=== PATIENT | male | born 1935 | race Caucasian/White ===

== ENCOUNTER 2017-10-27 18:16 | Inpatient (IN) | payer MEDICARE, OTHER ==
[~2017-10-27] VITALS: Ht 167.6 cm; Wt 70.8 kg
[2017-10-27] MEDS ORDERED: METHYLPREDNISOLONE SOD SUCC 125MG/2ML VIAL ONE (18:28)
[2017-10-27 18:37] LABS: BASOPHILS % (AUTO) 0.6 % (0.0-5.0); EOSINOPHILS % (AUTO) 2.1 % (0.0-8.0); HEMATOCRIT 29.5 % (42-54); MEAN CORPUSCULAR HEMOGLOBIN 32.9 pg (27.0-33.0); MEAN CORPUSCULAR HGB CONC 35.1 g/dL (32.0-36.0); MEAN CORPUSCULAR VOLUME 93.9 fL (79-99); MONOCYTES % (AUTO) 17.5 % (3.0-13.0); NEUTROPHILS % (AUTO) 41.8 % (40.0-77.0); PLATELET COUNT (AUTO) 224 K/uL (130-400); RED BLOOD CELL COUNT(AUTO) 3.14 MIL/uL (4.50-6.20); RED CELL DISTRIBUTION WIDTH 15.3 % (11.0-15.5); WHITE BLOOD COUNT (AUTO) 4.3 K/uL (4.8-10.8)
[2017-10-27] MEDS ORDERED: IPRATROPIUM/ALBUTEROL SULFATE 3 ML SOLUTION IH ONE (18:40)
[2017-10-27 18:48] LABS: CREATININE 1.5 mg/dL (0.5-1.5); POTASSIUM 4.2 mmol/L (3.5-5.1)
[2017-10-27 18:56] LABS: ALBUMIN 3.5 g/dL (3.5-5.0); BILIRUBIN,TOTAL 0.8 mg/dL (0.2-1.0); TOTAL PROTEIN, SERUM 8.5 g/dL (6.0-8.3)
[2017-10-27 19:25] LABS: B-TYPE NATRIURETIC PEPTIDE 547 pg/mL (0-100)
[2017-10-27] MEDS ORDERED: FUROSEMIDE 10 MG/ML 4ML VIAL ONE (20:17)
[2017-10-27] MEDS: FUROSEMIDE 10 MG/ML 4ML VIAL IVP SCH (20:30)
[2017-10-27 21:55] VITALS: BP 134/71
[2017-10-27] MEDS ORDERED: CARV3.12 PO (22:18)
[2017-10-27] MEDS ORDERED: ASPI-555 PO (22:18)
[2017-10-27] MEDS ORDERED: FOLI0.8T PO (22:18)
[2017-10-27] MEDS ORDERED: BUDE10.2 IH (22:18)
[2017-10-27] MEDS ORDERED: CYAN250010 PO (22:18)
[2017-10-27] MEDS ORDERED: FURO20TA4 PO (22:19)
[2017-10-27] MEDS ORDERED: TIOT18CA3 IH (22:19)
[2017-10-27] MEDS ORDERED: IPRA3AMP4 IH (22:19)
[2017-10-27] MEDS ORDERED: SIMV20TA6 PO (22:19)
[2017-10-27] MEDS ORDERED: NITR0.4T50 SL (22:19)
[2017-10-27] MEDS ORDERED: SPIR25TA4 PO (22:19)
[2017-10-27] MEDS ORDERED: TAMS0.4C32 PO (22:19)
[2017-10-27] MEDS ORDERED: IPRA4AER IH (22:19)
[2017-10-27] MEDS ORDERED: FISH1CAP50 PO (22:19)
[2017-10-27] MEDS ORDERED: [UNRECOGNIZED DRUG - CODE] MC (22:19)
[2017-10-27] MEDS ORDERED: MULT-1203 PO (22:19)
[2017-10-27] MEDS ORDERED: LOSA25TA21 PO (22:19)
[2017-10-27 23:55] VITALS: BP 118/65
[2017-10-28] MEDS: IPRATROPIUM/ALBUTEROL SULFATE 3 ML SOLUTION IH SCH ×4 (02:09→17:33)
[2017-10-28 04:00] VITALS: BP 127/71
[2017-10-28 07:00] VITALS: BP 128/76
[2017-10-28] MEDS: FUROSEMIDE 10 MG/ML 4ML VIAL IVP SCH ×2 (07:36→20:43)
[2017-10-28] MEDS ORDERED: DOCU100C33 PO (07:46)
[2017-10-28] MEDS: TAMSULOSIN HCL 0.4 MG CAP.ER.24H PO SCH (09:22)
[2017-10-28 11:00] VITALS: BP 123/74
[2017-10-28] MEDS ORDERED: NITROGLYCERIN 0.4 MG SL TAB SL PRN (11:45)
[2017-10-28] MEDS ORDERED: ONDANSETRON HCL 4 MG/2 ML VIAL IVP PRN (11:45)
[2017-10-28] MEDS ORDERED: SODIUM CHLORIDE 0.9% 500ML 500 ML IV ONE (14:50)
[2017-10-28] MEDS: LEVOFLOXACIN 500 MG/D5W 100 ML 100 ML IV SCH (15:26)
[2017-10-28 16:00] VITALS: BP 122/64
[2017-10-28 20:00] VITALS: BP 112/59
[2017-10-28] MEDS: DOCUSATE SODIUM 100 MG CAP PO SCH (20:42)
[2017-10-28] MEDS: CARVEDILOL 3.125 MG TABLET PO SCH (20:43)
[2017-10-28] MEDS: ATORVASTATIN CALCIUM 10 MG TABLET PO SCH (20:43)
[2017-10-29] VITALS (7 sets, daily range): BP systolic 93–114; BP diastolic 54–69
[2017-10-29] MEDS: IPRATROPIUM/ALBUTEROL SULFATE 3 ML SOLUTION IH SCH ×4 (00:11→18:23)
[2017-10-29] MEDS: CARVEDILOL 3.125 MG TABLET PO SCH ×3 (09:00→20:02)
[2017-10-29] MEDS ORDERED: LOSARTAN 50 MG TABLET PO SCH (09:00)
[2017-10-29] MEDS: ASPIRIN 81 MG EC TAB PO SCH (09:40)
[2017-10-29] MEDS: ENOXAPARIN SODIUM 30 MG/0.3 ML SQ SCH (09:40)
[2017-10-29] MEDS: SPIRONOLACTONE 25 MG TAB PO SCH (09:41)
[2017-10-29] MEDS: DOCUSATE SODIUM 100 MG CAP PO SCH ×2 (09:41→20:02)
[2017-10-29] MEDS: FUROSEMIDE 10 MG/ML 4ML VIAL IVP SCH (09:41)
[2017-10-29] MEDS: TAMSULOSIN HCL 0.4 MG CAP.ER.24H PO SCH (09:42)
[2017-10-29 10:55] LABS: BASOPHILS % (AUTO) 0.4 % (0.0-5.0); EOSINOPHILS % (AUTO) 1.3 % (0.0-8.0); HEMATOCRIT 30.2 % (42-54); LYMPHOCYTES % (AUTO) 20.8 % (21.0-51.0); MEAN CORPUSCULAR HEMOGLOBIN 32.7 pg (27.0-33.0); MEAN CORPUSCULAR HGB CONC 34.6 g/dL (32.0-36.0); MEAN CORPUSCULAR VOLUME 94.5 fL (79-99); MONOCYTES % (AUTO) 13.6 % (3.0-13.0); NEUTROPHILS % (AUTO) 63.9 % (40.0-77.0); PLATELET COUNT (AUTO) 250 K/uL (130-400); RED BLOOD CELL COUNT(AUTO) 3.19 MIL/uL (4.50-6.20); RED CELL DISTRIBUTION WIDTH 15.5 % (11.0-15.5); WHITE BLOOD COUNT (AUTO) 5.4 K/uL (4.8-10.8)
[2017-10-29 11:04] LABS: CREATININE 1.4 mg/dL (0.5-1.5); POTASSIUM 4.5 mmol/L (3.5-5.1)
[2017-10-29] MEDS: LEVOFLOXACIN 500 MG/D5W 100 ML 100 ML IV SCH (11:23)
[2017-10-29] MEDS ORDERED: FUROSEMIDE 40 MG TABLET PO SCH (13:00)
[2017-10-29] MEDS ORDERED: SODIUM CHLORIDE 3% FOR INHALATION 4 ML/AMP VIAL.NEB IH ONE (18:33)
[2017-10-29] MEDS: ATORVASTATIN CALCIUM 10 MG TABLET PO SCH (20:02)
[2017-10-29] MEDS ORDERED: PANTOPRAZOLE SODIUM 40 MG TABLET.DR PO ONE (22:13)
[2017-10-29] MEDS ORDERED: MAG HYDROX/AL HYDROX/SIMETH ES 30 ML SUSP UDCUP PO PRN (22:15)
[2017-10-29] MEDS: PANTOPRAZOLE SODIUM 40 MG TABLET.DR PO SCH (22:15)
[2017-10-29] MEDS ORDERED: MAG HYDROX/AL HYDROX/SIMETH ES 30 ML SUSP UDCUP ONE (22:19)
[2017-10-30] MEDS: IPRATROPIUM/ALBUTEROL SULFATE 3 ML SOLUTION IH SCH ×4 (00:12→20:20)
[2017-10-30 04:00] VITALS: BP 94/57
[2017-10-30 05:17] LABS: BASOPHILS % (AUTO) 0.2 % (0.0-5.0); EOSINOPHILS % (AUTO) 2.7 % (0.0-8.0); LYMPHOCYTES % (AUTO) 28.1 % (21.0-51.0); MEAN CORPUSCULAR HEMOGLOBIN 33.3 pg (27.0-33.0); MEAN CORPUSCULAR HGB CONC 35.5 g/dL (32.0-36.0); MEAN CORPUSCULAR VOLUME 93.9 fL (79-99); MONOCYTES % (AUTO) 18.3 % (3.0-13.0); NEUTROPHILS % (AUTO) 50.7 % (40.0-77.0); PLATELET COUNT (AUTO) 229 K/uL (130-400); RED BLOOD CELL COUNT(AUTO) 2.87 MIL/uL (4.50-6.20); RED CELL DISTRIBUTION WIDTH 15.6 % (11.0-15.5); WHITE BLOOD COUNT (AUTO) 4.5 K/uL (4.8-10.8)
[2017-10-30 05:55] LABS: B-TYPE NATRIURETIC PEPTIDE 166 pg/mL (0-100)
[2017-10-30 06:08] LABS: POTASSIUM 3.9 mmol/L (3.5-5.1)
[2017-10-30 07:45] VITALS: BP 111/70
[2017-10-30] MEDS: DOCUSATE SODIUM 100 MG CAP PO SCH ×2 (08:51→21:04)
[2017-10-30] MEDS: SPIRONOLACTONE 25 MG TAB PO SCH (08:51)
[2017-10-30] MEDS: PANTOPRAZOLE SODIUM 40 MG TABLET.DR PO SCH (08:51)
[2017-10-30] MEDS: TAMSULOSIN HCL 0.4 MG CAP.ER.24H PO SCH (08:51)
[2017-10-30] MEDS: ASPIRIN 81 MG EC TAB PO SCH (08:52)
[2017-10-30] MEDS: ACETAMINOPHEN EXTRA STRENGTH 500 MG TABLET PO PRN ×3 (08:52→23:32)
[2017-10-30] MEDS: ENOXAPARIN SODIUM 30 MG/0.3 ML SQ SCH (08:53)
[2017-10-30] MEDS: CARVEDILOL 3.125 MG TABLET PO SCH (08:54)
[2017-10-30] MEDS: LEVOFLOXACIN 500 MG/D5W 100 ML 100 ML IV SCH (10:54)
[2017-10-30 12:00] VITALS: BP 87/50
[2017-10-30 15:50] VITALS: BP 85/51
[2017-10-30] MEDS ORDERED: LEVO500T2 PO (18:22)
[2017-10-30 19:00] VITALS: BP 97/56
[2017-10-30] MEDS: ATORVASTATIN CALCIUM 10 MG TABLET PO SCH (21:04)
[2017-10-30 23:00] VITALS: BP 116/63
[2017-10-31] MEDS: IPRATROPIUM/ALBUTEROL SULFATE 3 ML SOLUTION IH SCH ×2 (01:25→07:21)
[2017-10-31 03:00] VITALS: BP 124/61
[2017-10-31] MEDS: ASPIRIN 81 MG EC TAB PO SCH (07:57)
[2017-10-31] MEDS: TAMSULOSIN HCL 0.4 MG CAP.ER.24H PO SCH (07:58)
[2017-10-31] MEDS: PANTOPRAZOLE SODIUM 40 MG TABLET.DR PO SCH (07:58)
[2017-10-31] MEDS: ENOXAPARIN SODIUM 30 MG/0.3 ML SQ SCH (07:58)
[2017-10-31] MEDS: DOCUSATE SODIUM 100 MG CAP PO SCH (07:58)
[2017-10-31 08:18] VITALS: BP 118/63
[2017-10-31] MEDS: ACETAMINOPHEN EXTRA STRENGTH 500 MG TABLET PO PRN (09:09)
== END 2017-10-31 11:30 | disposition home or self-care (01) | DRG 190 ==
LOC: EDH 18:16 → EDHIP 20:04 → 4AH 20:59 → 4BH 10-28 18:07
PROVIDERS: ADMIT Family Medicine; ATTEND Family Medicine
DX: J44.1 Chronic obstructive pulmonary disease with (acute) exacerbation (principal); I50.23 Acute on chronic systolic (congestive) heart failure; D70.9 Neutropenia, unspecified; D63.8 Anemia in other chronic diseases classified elsewhere; Z95.1 Presence of aortocoronary bypass graft; I11.0 Hypertensive heart disease with heart failure; I25.10 Atherosclerotic heart disease of native coronary artery without angina pectoris; Z87.891 Personal history of nicotine dependence
CPT/HCPCS: 36415; 71045; 71250; 80048; 80053; 83880; 84484; 85025; 87071; 87205; 87633; 93005; 94640; 94664; 94760; 99291; J1650; J1940; J1956; J2930; J7040

== ENCOUNTER 2017-11-17 11:45 | Inpatient (IN) | payer OTHER ==
[~2017-11-17] VITALS: Ht 165.1 cm; Wt 70.3 kg
[~2017-11-17 11:45] MED LIST: ASPI-555 PO; BUDE10.2 IH; CARV3.12 PO; CYAN250010 PO; DOCU100C33 PO; FISH1CAP50 PO; FOLI0.8T PO; FURO20TA4 PO; IPRA3AMP4 IH; IPRA4AER IH; LEVO500T2 PO; MULT-1203 PO; SIMV20TA6 PO; SPIR25TA4 PO; TAMS0.4C32 PO; TIOT18CA3 IH; [UNRECOGNIZED DRUG - CODE] MC
[2017-11-17] MEDS ORDERED: IPRATROPIUM/ALBUTEROL SULFATE 3 ML SOLUTION IH ONE (12:30)
[2017-11-17 13:04] LABS: BASOPHILS % (AUTO) 0.2 % (0.0-5.0); EOSINOPHILS % (AUTO) 4.3 % (0.0-8.0); HEMATOCRIT 27.2 % (42-54); MEAN CORPUSCULAR HEMOGLOBIN 33.7 pg (27.0-33.0); MEAN CORPUSCULAR HGB CONC 35.3 g/dL (32.0-36.0); MEAN CORPUSCULAR VOLUME 95.4 fL (79-99); NEUTROPHILS % (AUTO) 38.5 % (40.0-77.0); NUCLEATED RED BLOOD CELLS 0.1 % (0.0-0.19); PLATELET COUNT (AUTO) 236 K/uL (130-400); RED BLOOD CELL COUNT(AUTO) 2.85 MIL/uL (4.50-6.20); WHITE BLOOD COUNT (AUTO) 4.5 K/uL (4.8-10.8)
[2017-11-17 13:14] LABS: CREATININE 1.1 mg/dL (0.5-1.5); POTASSIUM 4.4 mmol/L (3.5-5.1)
[2017-11-17 13:17] LABS: PARTIAL THROMBOPLASTIN TIME 26.3 SEC (26.3-35.5); PROTHROMBIN TIME 10.5 SEC (9.6-11.6)
[2017-11-17 13:19] LABS: ALBUMIN 3.2 g/dL (3.5-5.0); BILIRUBIN,TOTAL 0.7 mg/dL (0.2-1.0); TOTAL PROTEIN, SERUM 8.2 g/dL (6.0-8.3)
[2017-11-17 14:07] LABS: B-TYPE NATRIURETIC PEPTIDE 328 pg/mL (0-100)
[2017-11-17] MEDS ORDERED: IOPAMIDOL-370 100 ML VIAL IV ONE (14:09)
[2017-11-17] MEDS ORDERED: METHYLPREDNISOLONE SOD SUCC 40MG/ML 1ML ONE (16:09)
[2017-11-17] MEDS ORDERED: DOXYCYCLINE 100MG+NS 250ML 250 ML IV ONE (16:09)
[2017-11-17] MEDS ORDERED: POTASSIUM CHLORIDE 20 MEQ ERTAB PO PRN (16:15)
[2017-11-17] MEDS ORDERED: SUB PER P&T FOR ASTHMA OR COPD RECOMMENDATION IH SCH (16:15)
[2017-11-17] MEDS ORDERED: MORPHINE SULFATE 2 MG/ML 1ML SYG IV PRN (16:15)
[2017-11-17] MEDS ORDERED: NITROGLYCERIN 0.4 MG SL TAB SL PRN (16:15)
[2017-11-17] MEDS ORDERED: MAG HYDROX/AL HYDROX/SIMETH ES 30 ML SUSP UDCUP PO PRN (16:15)
[2017-11-17] MEDS ORDERED: MORPHINE SULFATE 4 MG/1ML SYG IV PRN (16:15)
[2017-11-17] MEDS ORDERED: GUAIFENESIN-DM 200/20 MG 10 ML PO PRN (16:15)
[2017-11-17] MEDS ORDERED: ACETAMINOPHEN-CODEINE 300/30MG TAB PO PRN ×2 (16:15)
[2017-11-17] MEDS ORDERED: HYDRALAZINE HCL 20 MG/ML VIAL IV PRN (16:15)
[2017-11-17] MEDS ORDERED: ACETAMINOPHEN 325 MG TAB PO PRN ×2 (16:15)
[2017-11-17] MEDS ORDERED: POTASSIUM CHLORIDE 20MEQ/100ML 100 ML IV PRN (16:15)
[2017-11-17] MEDS ORDERED: LACTULOSE 20 GM/30 ML UDCUP PO PRN (16:15)
[2017-11-17] MEDS: DOXYCYCLINE 100MG+NS 250ML 250 ML IV SCH (16:15)
[2017-11-17] MEDS ORDERED: ONDANSETRON HCL 4 MG/2 ML VIAL IV PRN (16:15)
[2017-11-17] MEDS ORDERED: LIDOCAINE HCL-MPF 1% 2ML VIAL IVP PRN (16:15)
[2017-11-17] MEDS: METHYLPREDNISOLONE SOD SUCC 125MG/2ML VIAL IV SCH (16:15)
[2017-11-17] MEDS ORDERED: POTASSIUM CHLORIDE 10% ELIXIR 20 MEQ/15 ML UDCUP PO PRN (16:15)
[2017-11-17 17:00] VITALS: BP 137/64
[2017-11-17] MEDS ORDERED: CARVEDILOL 3.125 MG TABLET PO ONE (19:04)
[2017-11-17] MEDS ORDERED: ATORVASTATIN CALCIUM 10 MG TABLET ONE (19:04)
[2017-11-17] MEDS ORDERED: FAMOTIDINE/PF 20 MG/2 ML VIAL IV ONE (19:05)
[2017-11-17] MEDS: BUDESONIDE 0.5 MG/2 ML INH IH SCH (19:10)
[2017-11-17] MEDS: IPRATROPIUM/ALBUTEROL SULFATE 3 ML SOLUTION IH SCH (19:10)
[2017-11-17] MEDS: FUROSEMIDE 10 MG/ML 4ML VIAL IVP SCH (19:12)
[2017-11-17] MEDS: ATORVASTATIN CALCIUM 10 MG TABLET PO SCH (19:12)
[2017-11-17] MEDS: FAMOTIDINE/PF 20 MG/2 ML VIAL IV SCH (19:14)
[2017-11-17] MEDS: CARVEDILOL 3.125 MG TABLET PO SCH (19:16)
[2017-11-17 20:25] VITALS: BP 148/82
[2017-11-18] VITALS (7 sets, daily range): BP systolic 109–130; BP diastolic 59–67
[2017-11-18] MEDS: IPRATROPIUM/ALBUTEROL SULFATE 3 ML SOLUTION IH SCH ×5 (00:02→23:11)
[2017-11-18] MEDS: METHYLPREDNISOLONE SOD SUCC 125MG/2ML VIAL IV SCH ×3 (00:08→16:01)
[2017-11-18] MEDS: DOXYCYCLINE 100MG+NS 250ML 250 ML IV SCH ×2 (03:35→16:24)
[2017-11-18] MEDS: BUDESONIDE 0.5 MG/2 ML INH IH SCH ×2 (05:20→18:04)
[2017-11-18 05:35] LABS: CARBON DIOXIDE 28 mmol/L (21-32); CHLORIDE 101 mmol/L (101-111); CREATINE KINASE MB 1.3 ng/mL (0.5-3.6); CREATINE KINASE, TOTAL 57 U/L (21-232); CREATININE 1.1 mg/dL (0.5-1.5); GLOMERULAR FILTR. RATE CALC 68 mL/min (>60); GLUCOSE,RANDOM 159 mg/dL (70-105); MYOGLOBIN 114 ng/mL (10-92); POTASSIUM 4.1 mmol/L (3.5-5.1); SODIUM SERUM 138 mmol/L (136-145); TROPONIN I < 0.04 ng/mL (0.00-0.06); UREA NITROGEN, BLOOD 21 mg/dL (7-18)
[2017-11-18] MEDS: FOLIC ACID 0.8 MG PO SCH (09:00)
[2017-11-18] MEDS ORDERED: NON-FORMULARY MEDICATION 1 EACH (Folic Acid 0.8 MG) PO SCH (09:00)
[2017-11-18] MEDS ORDERED: SUB TO IPRATROPIUM 0.5MG/2.5ML PER P&T IH SCH (09:00)
[2017-11-18] MEDS: SPIRONOLACTONE 25 MG TAB PO SCH (09:11)
[2017-11-18] MEDS: FAMOTIDINE/PF 20 MG/2 ML VIAL IV SCH ×2 (09:11→21:54)
[2017-11-18] MEDS: TAMSULOSIN HCL 0.4 MG CAP.ER.24H PO SCH (09:11)
[2017-11-18] MEDS: ASPIRIN 81 MG EC TAB PO SCH (09:11)
[2017-11-18] MEDS: MULTIVITAMIN TABLET PO SCH (09:12)
[2017-11-18] MEDS: CARVEDILOL 3.125 MG TABLET PO SCH ×2 (09:12→21:54)
[2017-11-18] MEDS: ENOXAPARIN SODIUM 40 MG/0.4 ML SYRINGE SQ SCH (09:13)
[2017-11-18] MEDS ORDERED: CEFEPIME 1GM+NS 50ML 50 ML IV SCH (14:00)
[2017-11-18] MEDS: FUROSEMIDE 10 MG/ML 4ML VIAL IVP SCH (16:15)
[2017-11-18] MEDS: CEFEPIME HCL 1 GM VIAL IVP SCH (16:24)
[2017-11-18] MEDS: OSELTAMIVIR SUSP 15 MG/ML (6 CAPS/29ML) PO SCH ×2 (21:00)
[2017-11-18] MEDS ORDERED: OSELTAMIVIR PHOSPHATE 75 MG CAP PO SCH (21:00)
[2017-11-18] MEDS: DOCUSATE SODIUM 100 MG CAP PO SCH (21:54)
[2017-11-18] MEDS: ATORVASTATIN CALCIUM 10 MG TABLET PO SCH (21:54)
[2017-11-18] MEDS: FLUTICASONE PROPIONATE 50MCG/SPRAY 16 GM BOTTLE EN SCH (21:55)
[2017-11-19] VITALS (8 sets, daily range): BP systolic 120–163; BP diastolic 60–80
[2017-11-19] MEDS: CEFEPIME HCL 1 GM VIAL IVP SCH ×3 (00:44→17:05)
[2017-11-19] MEDS: METHYLPREDNISOLONE SOD SUCC 125MG/2ML VIAL IV SCH ×3 (00:45→17:05)
[2017-11-19 03:50] LABS: ABG BASE EXCESS 0.6 mmol/L (-2.0-3.0); ABG HCO3 24.2 mmol/L (21.0-28.0); ABG OXYGEN SATURATION 98.1 % (95.0-99.0); ABG PCO2 36 mmHg (35-48)
[2017-11-19] MEDS: DOXYCYCLINE 100MG+NS 250ML 250 ML IV SCH ×2 (04:58→21:18)
[2017-11-19] MEDS: IPRATROPIUM/ALBUTEROL SULFATE 3 ML SOLUTION IH SCH ×4 (06:07→23:41)
[2017-11-19] MEDS: BUDESONIDE 0.5 MG/2 ML INH IH SCH ×2 (06:19→18:49)
[2017-11-19 06:55] LABS: HEMATOCRIT 26.9 % (42-54); MEAN CORPUSCULAR HEMOGLOBIN 33.4 pg (27.0-33.0); MEAN CORPUSCULAR HGB CONC 34.9 g/dL (32.0-36.0); MEAN CORPUSCULAR VOLUME 95.7 fL (79-99); PLATELET COUNT (AUTO) 259 K/uL (130-400); RED BLOOD CELL COUNT(AUTO) 2.81 MIL/uL (4.50-6.20); RED CELL DISTRIBUTION WIDTH 16.3 % (11.0-15.5); WHITE BLOOD COUNT (AUTO) 6.6 K/uL (4.8-10.8)
[2017-11-19 07:15] LABS: INR 1.01 (0.85-1.15); PARTIAL THROMBOPLASTIN TIME 26.9 SEC (26.3-35.5); PROTHROMBIN TIME 10.6 SEC (9.6-11.6)
[2017-11-19] MEDS: CYANOCOBALAMIN (VITAMIN B-12) 1,000 MCG TABLET PO SCH (08:37)
[2017-11-19] MEDS: MULTIVITAMIN TABLET PO SCH (08:37)
[2017-11-19] MEDS: SPIRONOLACTONE 25 MG TAB PO SCH (08:38)
[2017-11-19] MEDS: TAMSULOSIN HCL 0.4 MG CAP.ER.24H PO SCH (08:38)
[2017-11-19] MEDS: CARVEDILOL 3.125 MG TABLET PO SCH ×2 (08:38→21:05)
[2017-11-19] MEDS: DOCUSATE SODIUM 100 MG CAP PO SCH ×2 (08:38→21:06)
[2017-11-19] MEDS: FUROSEMIDE 20 MG TABLET PO SCH (08:39)
[2017-11-19] MEDS: FAMOTIDINE/PF 20 MG/2 ML VIAL IV SCH ×2 (08:40→21:04)
[2017-11-19] MEDS: FLUTICASONE PROPIONATE 50MCG/SPRAY 16 GM BOTTLE EN SCH ×2 (08:40→21:07)
[2017-11-19] MEDS: ASPIRIN 81 MG EC TAB PO SCH (08:40)
[2017-11-19] MEDS: OSELTAMIVIR SUSP 15 MG/ML (6 CAPS/29ML) PO SCH ×4 (08:43→21:06)
[2017-11-19] MEDS: FOLIC ACID 0.8 MG PO SCH (09:00)
[2017-11-19 09:17] LABS: MAGNESIUM 2.4 mg/dL (1.80-2.40); PHOSPHORUS 3.2 mg/dL (2.5-4.9)
[2017-11-19] MEDS: ENOXAPARIN SODIUM 40 MG/0.4 ML SYRINGE SQ SCH (09:34)
[2017-11-19] MEDS: FUROSEMIDE 10 MG/ML 4ML VIAL IVP SCH (16:15)
[2017-11-19] MEDS ORDERED: FAMOTIDINE/PF 20 MG/2 ML VIAL IV ONE (20:59)
[2017-11-19] MEDS: ATORVASTATIN CALCIUM 10 MG TABLET PO SCH (21:04)
[2017-11-20] MEDS: METHYLPREDNISOLONE SOD SUCC 125MG/2ML VIAL IV SCH ×3 (02:13→15:45)
[2017-11-20] MEDS: CEFEPIME HCL 1 GM VIAL IVP SCH ×3 (02:13→15:45)
[2017-11-20 03:25] VITALS: BP 145/64
[2017-11-20 03:40] LABS: HEMATOCRIT 22.6 % (42-54); MEAN CORPUSCULAR HEMOGLOBIN 34.4 pg (27.0-33.0); MEAN CORPUSCULAR HGB CONC 35.8 g/dL (32.0-36.0); MEAN CORPUSCULAR VOLUME 96.1 fL (79-99); PLATELET COUNT (AUTO) 229 K/uL (130-400); RED BLOOD CELL COUNT(AUTO) 2.35 MIL/uL (4.50-6.20); RED CELL DISTRIBUTION WIDTH 16.7 % (11.0-15.5); WHITE BLOOD COUNT (AUTO) 5.5 K/uL (4.8-10.8)
[2017-11-20 03:53] LABS: MAGNESIUM 2.4 mg/dL (1.80-2.40); POTASSIUM 4.4 mmol/L (3.5-5.1)
[2017-11-20] MEDS: DOXYCYCLINE 100MG+NS 250ML 250 ML IV SCH ×2 (04:15→15:45)
[2017-11-20 07:00] VITALS: BP 116/75
[2017-11-20] MEDS: BUDESONIDE 0.5 MG/2 ML INH IH SCH ×2 (07:03→18:55)
[2017-11-20] MEDS: IPRATROPIUM/ALBUTEROL SULFATE 3 ML SOLUTION IH SCH ×3 (07:03→18:45)
[2017-11-20] MEDS: DOCUSATE SODIUM 100 MG CAP PO SCH ×2 (09:00→22:45)
[2017-11-20] MEDS: OSELTAMIVIR SUSP 15 MG/ML (6 CAPS/29ML) PO SCH ×4 (09:00→22:47)
[2017-11-20] MEDS: SPIRONOLACTONE 25 MG TAB PO SCH (09:00)
[2017-11-20] MEDS: FOLIC ACID 0.8 MG PO SCH (09:00)
[2017-11-20] MEDS: ASPIRIN 81 MG EC TAB PO SCH (09:00)
[2017-11-20] MEDS: CYANOCOBALAMIN (VITAMIN B-12) 1,000 MCG TABLET PO SCH (09:00)
[2017-11-20] MEDS: FAMOTIDINE/PF 20 MG/2 ML VIAL IV SCH ×2 (09:00→21:00)
[2017-11-20] MEDS: MULTIVITAMIN TABLET PO SCH (09:00)
[2017-11-20] MEDS: ENOXAPARIN SODIUM 40 MG/0.4 ML SYRINGE SQ SCH (09:00)
[2017-11-20] MEDS: FUROSEMIDE 20 MG TABLET PO SCH (09:00)
[2017-11-20] MEDS: TAMSULOSIN HCL 0.4 MG CAP.ER.24H PO SCH (09:00)
[2017-11-20] MEDS: CARVEDILOL 3.125 MG TABLET PO SCH ×2 (10:20→22:48)
[2017-11-20] MEDS: FLUTICASONE PROPIONATE 50MCG/SPRAY 16 GM BOTTLE EN SCH ×2 (10:22→23:00)
[2017-11-20 12:00] VITALS: BP 122/67
[2017-11-20] MEDS: FUROSEMIDE 10 MG/ML 4ML VIAL IVP SCH (15:47)
[2017-11-20 16:00] VITALS: BP 157/92
[2017-11-20 20:00] VITALS: BP 110/60
[2017-11-20] MEDS: ATORVASTATIN CALCIUM 10 MG TABLET PO SCH (22:45)
[2017-11-21] VITALS (11 sets, daily range): BP systolic 89–165; BP diastolic 41–75
[2017-11-21] MEDS: IPRATROPIUM/ALBUTEROL SULFATE 3 ML SOLUTION IH SCH ×5 (00:05→23:24)
[2017-11-21 04:45] LABS: HEMATOCRIT 24.1 % (42-54); MEAN CORPUSCULAR HEMOGLOBIN 33.7 pg (27.0-33.0); MEAN CORPUSCULAR HGB CONC 34.9 g/dL (32.0-36.0); MEAN CORPUSCULAR VOLUME 96.4 fL (79-99); PLATELET COUNT (AUTO) 247 K/uL (130-400); RED CELL DISTRIBUTION WIDTH 16.6 % (11.0-15.5); WHITE BLOOD COUNT (AUTO) 5.2 K/uL (4.8-10.8)
[2017-11-21 04:56] LABS: CREATININE 1.1 mg/dL (0.5-1.5); POTASSIUM 4.1 mmol/L (3.5-5.1)
[2017-11-21] MEDS: BUDESONIDE 0.5 MG/2 ML INH IH SCH ×2 (06:20→18:29)
[2017-11-21] MEDS: CEFEPIME HCL 1 GM VIAL IVP SCH ×2 (08:30→16:27)
[2017-11-21] MEDS: CYANOCOBALAMIN (VITAMIN B-12) 1,000 MCG TABLET PO SCH (09:00)
[2017-11-21] MEDS: FOLIC ACID 0.8 MG PO SCH (09:00)
[2017-11-21] MEDS: DOCUSATE SODIUM 100 MG CAP PO SCH ×2 (09:00→22:00)
[2017-11-21] MEDS: FUROSEMIDE 20 MG TABLET PO SCH (09:00)
[2017-11-21] MEDS: OSELTAMIVIR SUSP 15 MG/ML (6 CAPS/29ML) PO SCH ×4 (09:00→22:00)
[2017-11-21] MEDS: FAMOTIDINE/PF 20 MG/2 ML VIAL IV SCH ×2 (09:00→22:01)
[2017-11-21] MEDS: MULTIVITAMIN TABLET PO SCH (09:00)
[2017-11-21] MEDS: FLUTICASONE PROPIONATE 50MCG/SPRAY 16 GM BOTTLE EN SCH ×2 (09:00→22:00)
[2017-11-21] MEDS: ASPIRIN 81 MG EC TAB PO SCH (09:00)
[2017-11-21] MEDS: TAMSULOSIN HCL 0.4 MG CAP.ER.24H PO SCH (09:00)
[2017-11-21] MEDS: ENOXAPARIN SODIUM 40 MG/0.4 ML SYRINGE SQ SCH (09:00)
[2017-11-21] MEDS: SPIRONOLACTONE 25 MG TAB PO SCH (11:44)
[2017-11-21] MEDS: CARVEDILOL 3.125 MG TABLET PO SCH ×2 (11:45→22:01)
[2017-11-21] MEDS: DOXYCYCLINE 100MG+NS 250ML 250 ML IV SCH (16:15)
[2017-11-21] MEDS: FUROSEMIDE 10 MG/ML 4ML VIAL IVP SCH (16:15)
[2017-11-21] MEDS: METHYLPREDNISOLONE SOD SUCC 125MG/2ML VIAL IV SCH (16:15)
[2017-11-21] MEDS: ATORVASTATIN CALCIUM 10 MG TABLET PO SCH (22:00)
[2017-11-22] VITALS: BP 136/78
[2017-11-22] MEDS: METHYLPREDNISOLONE SOD SUCC 125MG/2ML VIAL IV SCH ×3 (00:47→21:28)
[2017-11-22] MEDS: CEFEPIME HCL 1 GM VIAL IVP SCH (00:48)
[2017-11-22 04:00] VITALS: BP 116/70
[2017-11-22 04:23] LABS: MEAN CORPUSCULAR HGB CONC 35.2 g/dL (32.0-36.0); MEAN CORPUSCULAR VOLUME 96.6 fL (79-99); PLATELET COUNT (AUTO) 218 K/uL (130-400); RED BLOOD CELL COUNT(AUTO) 2.49 MIL/uL (4.50-6.20); RED CELL DISTRIBUTION WIDTH 16.8 % (11.0-15.5); WHITE BLOOD COUNT (AUTO) 4.1 K/uL (4.8-10.8)
[2017-11-22 04:32] LABS: POTASSIUM 4.1 mmol/L (3.5-5.1)
[2017-11-22] MEDS: DOXYCYCLINE 100MG+NS 250ML 250 ML IV SCH ×3 (04:56→17:51)
[2017-11-22] MEDS: BUDESONIDE 0.5 MG/2 ML INH IH SCH ×2 (06:37→19:37)
[2017-11-22] MEDS: IPRATROPIUM/ALBUTEROL SULFATE 3 ML SOLUTION IH SCH ×4 (06:37→23:56)
[2017-11-22 07:28] VITALS: BP 126/75
[2017-11-22] MEDS: FOLIC ACID 0.8 MG PO SCH (09:00)
[2017-11-22 11:00] VITALS: BP 131/73
[2017-11-22] MEDS: ENOXAPARIN SODIUM 40 MG/0.4 ML SYRINGE SQ SCH (11:38)
[2017-11-22] MEDS: FUROSEMIDE 20 MG TABLET PO SCH (11:39)
[2017-11-22] MEDS: TAMSULOSIN HCL 0.4 MG CAP.ER.24H PO SCH (11:39)
[2017-11-22] MEDS: SPIRONOLACTONE 25 MG TAB PO SCH (11:39)
[2017-11-22] MEDS: ASPIRIN 81 MG EC TAB PO SCH (11:42)
[2017-11-22] MEDS: CYANOCOBALAMIN (VITAMIN B-12) 1,000 MCG TABLET PO SCH (11:42)
[2017-11-22] MEDS: CARVEDILOL 3.125 MG TABLET PO SCH ×2 (11:43→21:29)
[2017-11-22] MEDS: DOCUSATE SODIUM 100 MG CAP PO SCH ×2 (11:43→21:28)
[2017-11-22] MEDS: FLUTICASONE PROPIONATE 50MCG/SPRAY 16 GM BOTTLE EN SCH ×2 (11:44→21:31)
[2017-11-22] MEDS: FAMOTIDINE/PF 20 MG/2 ML VIAL IV SCH ×2 (11:44→21:28)
[2017-11-22] MEDS: MULTIVITAMIN TABLET PO SCH (11:45)
[2017-11-22] MEDS: OSELTAMIVIR SUSP 15 MG/ML (6 CAPS/29ML) PO SCH ×4 (12:17→21:28)
[2017-11-22 16:00] VITALS: BP 113/58
[2017-11-22] MEDS: FUROSEMIDE 10 MG/ML 4ML VIAL IVP SCH (16:15)
[2017-11-22 20:00] VITALS: BP 126/75
[2017-11-22] MEDS: ATORVASTATIN CALCIUM 10 MG TABLET PO SCH (21:28)
[2017-11-23] VITALS: BP 112/64
[2017-11-23 04:00] VITALS: BP 124/66
[2017-11-23] MEDS: IPRATROPIUM/ALBUTEROL SULFATE 3 ML SOLUTION IH SCH (07:08)
[2017-11-23] MEDS: BUDESONIDE 0.5 MG/2 ML INH IH SCH (07:08)
[2017-11-23 08:03] VITALS: BP 135/80
[2017-11-23] MEDS: FOLIC ACID 0.8 MG PO SCH (09:00)
[2017-11-23] MEDS ORDERED: DOXYCYCLINE HYCLATE 100 MG TABLET PO ONE (10:34)
[2017-11-23] MEDS: TAMSULOSIN HCL 0.4 MG CAP.ER.24H PO SCH (10:39)
[2017-11-23] MEDS: CYANOCOBALAMIN (VITAMIN B-12) 1,000 MCG TABLET PO SCH (10:39)
[2017-11-23 10:40] VITALS: BP 135/80
[2017-11-23] MEDS: CARVEDILOL 3.125 MG TABLET PO SCH (10:40)
[2017-11-23] MEDS: DOCUSATE SODIUM 100 MG CAP PO SCH (10:40)
[2017-11-23] MEDS: MULTIVITAMIN TABLET PO SCH (10:41)
[2017-11-23] MEDS: SPIRONOLACTONE 25 MG TAB PO SCH (10:41)
[2017-11-23] MEDS: FAMOTIDINE/PF 20 MG/2 ML VIAL IV SCH (10:41)
[2017-11-23] MEDS: FUROSEMIDE 20 MG TABLET PO SCH (10:41)
[2017-11-23] MEDS: ASPIRIN 81 MG EC TAB PO SCH (10:41)
[2017-11-23] MEDS: METHYLPREDNISOLONE SOD SUCC 125MG/2ML VIAL IV SCH (10:42)
[2017-11-23] MEDS: ENOXAPARIN SODIUM 40 MG/0.4 ML SYRINGE SQ SCH (10:43)
[2017-11-23] MEDS: FLUTICASONE PROPIONATE 50MCG/SPRAY 16 GM BOTTLE EN SCH (10:49)
== END 2017-11-23 11:50 | disposition home or self-care (01) | DRG 180 ==
LOC: EDH 11:45 → OBSVTOIN 14:13 → EDHIP 14:13 → 4AH 16:58 → 3BH 11-18 15:27
PROVIDERS: ADMIT Internal Medicine; ATTEND Internal Medicine
PROC: 0BDC4ZX Extraction of Right Upper Lung Lobe, Percutaneous Endoscopic Approach, Diagnostic (ICD-10-PCS; principal; 2017-11-21)
DX: C34.11 Malignant neoplasm of upper lobe, right bronchus or lung (principal); J96.20 Acute and chronic respiratory failure, unspecified whether with hypoxia or hypercapnia; I50.23 Acute on chronic systolic (congestive) heart failure; R64 Cachexia; J44.1 Chronic obstructive pulmonary disease with (acute) exacerbation; J93.83 Other pneumothorax; Z95.1 Presence of aortocoronary bypass graft; M48.00 Spinal stenosis, site unspecified; I25.10 Atherosclerotic heart disease of native coronary artery without angina pectoris; G62.9 Polyneuropathy, unspecified; D64.9 Anemia, unspecified; E78.5 Hyperlipidemia, unspecified; I11.0 Hypertensive heart disease with heart failure; Z87.891 Personal history of nicotine dependence; Z98.61 Coronary angioplasty status; Z99.81 Dependence on supplemental oxygen; Z68.25 Body mass index [BMI] 25.0-25.9, adult; Z88.8 Allergy status to other drugs, medicaments and biological substances; Z90.49 Acquired absence of other specified parts of digestive tract
CPT/HCPCS: 32405; 36415; 36600; 71045; 71275; 77012; 80048; 80053; 82550; 82553; 82803; 83605; 83735; 83874; 83880; 84100; 84484; 85025; 85027; 85610; 85730; 87804; 88305; 93306; 94640; 94664; 94760; A4218; J0692; J1650; J1940; J2920; J2930; J3490; Q9967

== ENCOUNTER 2017-11-24 09:13 | Inpatient (IN) | payer OTHER ==
[~2017-11-24] VITALS: Ht 165.1 cm; Wt 67.1 kg
[~2017-11-24 09:13] MED LIST changes: -LEVO500T2 PO
[2017-11-24] MEDS ORDERED: GUAIFENESIN-DM 200/20 MG 10 ML PO PRN (10:30)
[2017-11-24] MEDS ORDERED: NITROGLYCERIN 1GM/1 INCH PACKET TD ONE (10:30)
[2017-11-24] MEDS ORDERED: MAG HYDROX/AL HYDROX/SIMETH ES 30 ML SUSP UDCUP PO PRN (10:30)
[2017-11-24] MEDS ORDERED: ONDANSETRON HCL 4 MG/2 ML VIAL IV PRN (10:30)
[2017-11-24] MEDS ORDERED: NITROGLYCERIN 0.4 MG SL TAB SL PRN (10:30)
[2017-11-24] MEDS ORDERED: ACETAMINOPHEN 325 MG TAB PO PRN (10:30)
[2017-11-24] MEDS ORDERED: DOXYCYCLINE 100MG+NS 250ML 250 ML IV SCH (10:30)
[2017-11-24] MEDS ORDERED: LACTULOSE 20 GM/30 ML UDCUP PO PRN (10:30)
[2017-11-24 10:50] LABS: INR 1.09 (0.85-1.15); PARTIAL THROMBOPLASTIN TIME 30.4 SEC (26.3-35.5); PROTHROMBIN TIME 11.4 SEC (9.6-11.6)
[2017-11-24 10:52] LABS: POTASSIUM 4.6 mmol/L (3.5-5.1)
[2017-11-24 11:04] LABS: CREATINE KINASE MB 1.1 ng/mL (0.5-3.6); TOTAL PROTEIN, SERUM 7.4 g/dL (6.0-8.3)
[2017-11-24 11:37] LABS: BASOPHILS % (AUTO) 0.2 % (0.0-5.0); EOSINOPHILS % (AUTO) 0.5 % (0.0-8.0); HEMATOCRIT 26.9 % (42-54); LYMPHOCYTES % (AUTO) 18.7 % (21.0-51.0); MEAN CORPUSCULAR HEMOGLOBIN 34.1 pg (27.0-33.0); MEAN CORPUSCULAR VOLUME 97.6 fL (79-99); NEUTROPHILS % (AUTO) 63.3 % (40.0-77.0); NUCLEATED RED BLOOD CELLS 0.1 % (0.0-0.19); PLATELET COUNT (AUTO) 225 K/uL (130-400); RED BLOOD CELL COUNT(AUTO) 2.76 MIL/uL (4.50-6.20); RED CELL DISTRIBUTION WIDTH 17.1 % (11.0-15.5); WHITE BLOOD COUNT (AUTO) 6.7 K/uL (4.8-10.8)
[2017-11-24 11:41] LABS: MONOCYTES % (AUTO) 17.3 % (3.0-13.0)
[2017-11-24] MEDS ORDERED: DOXYCYCLINE 100MG+NS 250ML 250 ML IV ONE (12:25)
[2017-11-24] MEDS ORDERED: METHYLPREDNISOLONE SOD SUCC 125MG/2ML VIAL ONE (12:26)
[2017-11-24] MEDS ORDERED: FUROSEMIDE 10 MG/ML 2ML VIAL ONE (12:26)
[2017-11-24] MEDS: IPRATROPIUM/ALBUTEROL SULFATE 3 ML SOLUTION IH SCH ×3 (13:55→22:24)
[2017-11-24 16:17] VITALS: BP 130/73
[2017-11-24] MEDS: METHYLPREDNISOLONE SOD SUCC 40MG/ML 1ML IVP SCH ×2 (16:30→18:34)
[2017-11-24] MEDS: FUROSEMIDE 10 MG/ML 2ML VIAL IV SCH ×2 (16:30→23:28)
[2017-11-24] MEDS: DOXYCYCLINE 100MG+NS 250ML 250 ML IV SCH ×2 (16:30→23:28)
[2017-11-24 19:20] VITALS: BP 117/75
[2017-11-24] MEDS: FAMOTIDINE/PF 20 MG/2 ML VIAL IV SCH (21:15)
[2017-11-24 23:30] VITALS: BP 128/64
[2017-11-25] MEDS: IPRATROPIUM/ALBUTEROL SULFATE 3 ML SOLUTION IH SCH ×5 (01:59→18:00)
[2017-11-25] MEDS: METHYLPREDNISOLONE SOD SUCC 40MG/ML 1ML IVP SCH ×3 (02:16→17:31)
[2017-11-25 03:23] VITALS: BP 113/78
[2017-11-25 06:49] LABS: CARBON DIOXIDE 33 mmol/L (21-32); CHLORIDE 98 mmol/L (101-111); CREATINE KINASE MB 1.6 ng/mL (0.5-3.6); CREATINE KINASE, TOTAL 20 U/L (21-232); CREATININE 1.1 mg/dL (0.5-1.5); GLOMERULAR FILTR. RATE CALC 68 mL/min (>60); GLUCOSE,RANDOM 142 mg/dL (70-105); MYOGLOBIN 99 ng/mL (10-92); POTASSIUM 3.9 mmol/L (3.5-5.1); SODIUM SERUM 139 mmol/L (136-145); TROPONIN I < 0.04 ng/mL (0.00-0.06); UREA NITROGEN, BLOOD 23 mg/dL (7-18)
[2017-11-25 07:30] VITALS: BP 117/45
[2017-11-25] MEDS: ENOXAPARIN SODIUM 40 MG/0.4 ML SYRINGE SQ SCH (10:21)
[2017-11-25] MEDS: ASPIRIN 325 MG TABLET PO SCH (10:22)
[2017-11-25] MEDS: DOXYCYCLINE HYCLATE 100 MG TABLET PO SCH ×2 (10:22→21:52)
[2017-11-25] MEDS: FUROSEMIDE 10 MG/ML 2ML VIAL IV SCH ×2 (10:22→22:02)
[2017-11-25] MEDS: FAMOTIDINE/PF 20 MG/2 ML VIAL IV SCH ×2 (10:22→21:53)
[2017-11-25] MEDS ORDERED: IPRATROPIUM/ALBUTEROL SULFATE 3 ML SOLUTION IH PRN (10:45)
[2017-11-25 11:00] VITALS: BP 143/63
[2017-11-25] MEDS: IPRATROPIUM 0.5 MG/2.5 ML INH IH SCH ×3 (12:00→23:39)
[2017-11-25 16:00] VITALS: BP 113/70
[2017-11-25 20:10] VITALS: BP 124/69
[2017-11-25] MEDS: ATORVASTATIN CALCIUM 10 MG TABLET PO SCH (21:52)
[2017-11-25] MEDS: DOCUSATE SODIUM 100 MG CAP PO SCH (21:53)
[2017-11-25] MEDS: CARVEDILOL 3.125 MG TABLET PO SCH (21:53)
[2017-11-25 23:42] VITALS: BP 107/74
[2017-11-26] MEDS: METHYLPREDNISOLONE SOD SUCC 40MG/ML 1ML IVP SCH ×3 (03:18→17:43)
[2017-11-26 04:20] VITALS: BP 113/64
[2017-11-26] MEDS: IPRATROPIUM 0.5 MG/2.5 ML INH IH SCH ×4 (06:00→23:18)
[2017-11-26] MEDS: IPRATROPIUM/ALBUTEROL SULFATE 3 ML SOLUTION IH SCH ×4 (07:09→21:52)
[2017-11-26 08:00] VITALS: BP 137/58
[2017-11-26] MEDS: ASPIRIN 81 MG EC TAB PO SCH (09:00)
[2017-11-26] MEDS: FUROSEMIDE 10 MG/ML 2ML VIAL IV SCH ×2 (09:25→22:03)
[2017-11-26] MEDS: FAMOTIDINE/PF 20 MG/2 ML VIAL IV SCH ×3 (09:25→22:05)
[2017-11-26] MEDS: FOLIC ACID 1 MG TABLET PO SCH (09:25)
[2017-11-26] MEDS: ENOXAPARIN SODIUM 40 MG/0.4 ML SYRINGE SQ SCH (09:25)
[2017-11-26] MEDS: DOCUSATE SODIUM 100 MG CAP PO SCH ×2 (09:26→22:03)
[2017-11-26] MEDS: MULTIVITAMIN TABLET PO SCH (09:26)
[2017-11-26] MEDS: DOXYCYCLINE HYCLATE 100 MG TABLET PO SCH ×2 (09:26→22:02)
[2017-11-26] MEDS: CYANOCOBALAMIN (VITAMIN B-12) 1,000 MCG TABLET PO SCH (09:26)
[2017-11-26] MEDS: FISH OIL 1000 MG/CAP PO SCH (09:26)
[2017-11-26] MEDS: TAMSULOSIN HCL 0.4 MG CAP.ER.24H PO SCH (09:26)
[2017-11-26] MEDS: SPIRONOLACTONE 25 MG TAB PO SCH (09:26)
[2017-11-26] MEDS: ASPIRIN 325 MG TABLET PO SCH (09:26)
[2017-11-26] MEDS: VITAMIN E 400 UNIT CAPSULE PO SCH (09:27)
[2017-11-26] MEDS: CARVEDILOL 3.125 MG TABLET PO SCH ×2 (09:27→22:03)
[2017-11-26 11:00] VITALS: BP 115/74
[2017-11-26 16:00] VITALS: BP 124/76
[2017-11-26 20:00] VITALS: BP 109/65
[2017-11-26] MEDS: ATORVASTATIN CALCIUM 10 MG TABLET PO SCH (22:02)
[2017-11-27] VITALS: BP 124/76
[2017-11-27] MEDS: METHYLPREDNISOLONE SOD SUCC 40MG/ML 1ML IVP SCH ×3 (03:06→17:50)
[2017-11-27 03:57] LABS: CREATININE 1.2 mg/dL (0.5-1.5)
[2017-11-27 04:00] VITALS: BP 124/72
[2017-11-27] MEDS: IPRATROPIUM/ALBUTEROL SULFATE 3 ML SOLUTION IH SCH ×5 (06:19→22:12)
[2017-11-27 08:00] VITALS: BP 107/69
[2017-11-27] MEDS: DOCUSATE SODIUM 100 MG CAP PO SCH ×2 (09:01→21:24)
[2017-11-27] MEDS: VITAMIN E 400 UNIT CAPSULE PO SCH (09:01)
[2017-11-27] MEDS: CYANOCOBALAMIN (VITAMIN B-12) 1,000 MCG TABLET PO SCH (09:02)
[2017-11-27] MEDS: CARVEDILOL 3.125 MG TABLET PO SCH ×2 (09:02→21:25)
[2017-11-27] MEDS: FOLIC ACID 1 MG TABLET PO SCH (09:02)
[2017-11-27] MEDS: SPIRONOLACTONE 25 MG TAB PO SCH (09:02)
[2017-11-27] MEDS: ASPIRIN 81 MG EC TAB PO SCH (09:02)
[2017-11-27] MEDS: FISH OIL 1000 MG/CAP PO SCH (09:02)
[2017-11-27] MEDS: MULTIVITAMIN TABLET PO SCH (09:02)
[2017-11-27] MEDS: DOXYCYCLINE HYCLATE 100 MG TABLET PO SCH ×2 (09:02→21:24)
[2017-11-27] MEDS: FAMOTIDINE/PF 20 MG/2 ML VIAL IV SCH ×2 (09:03→21:25)
[2017-11-27] MEDS: ENOXAPARIN SODIUM 40 MG/0.4 ML SYRINGE SQ SCH (09:03)
[2017-11-27] MEDS: TAMSULOSIN HCL 0.4 MG CAP.ER.24H PO SCH (09:03)
[2017-11-27 10:35] LABS: HEMATOCRIT 29.4 % (42-54); MEAN CORPUSCULAR HEMOGLOBIN 34.4 pg (27.0-33.0); MEAN CORPUSCULAR HGB CONC 34.9 g/dL (32.0-36.0); MEAN CORPUSCULAR VOLUME 98.6 fL (79-99); PLATELET COUNT (AUTO) 269 K/uL (130-400); RED BLOOD CELL COUNT(AUTO) 2.98 MIL/uL (4.50-6.20); WHITE BLOOD COUNT (AUTO) 7.7 K/uL (4.8-10.8)
[2017-11-27 11:00] VITALS: BP 130/69
[2017-11-27] MEDS: FUROSEMIDE 10 MG/ML 2ML VIAL IV SCH ×2 (11:48→23:49)
[2017-11-27 16:00] VITALS: BP 124/56
[2017-11-27 20:00] VITALS: BP 120/67
[2017-11-27] MEDS: ATORVASTATIN CALCIUM 10 MG TABLET PO SCH (21:24)
[2017-11-28] VITALS: BP 123/69
[2017-11-28] MEDS: IPRATROPIUM/ALBUTEROL SULFATE 3 ML SOLUTION IH SCH ×6 (01:45→22:08)
[2017-11-28] MEDS: METHYLPREDNISOLONE SOD SUCC 40MG/ML 1ML IVP SCH ×3 (02:55→18:33)
[2017-11-28] MEDS: ACETAMINOPHEN 325 MG TAB PO PRN ×3 (03:30→18:44)
[2017-11-28 03:34] LABS: MEAN CORPUSCULAR HEMOGLOBIN 34.8 pg (27.0-33.0); MEAN CORPUSCULAR HGB CONC 35.2 g/dL (32.0-36.0); MEAN CORPUSCULAR VOLUME 98.9 fL (79-99); PLATELET COUNT (AUTO) 254 K/uL (130-400); RED BLOOD CELL COUNT(AUTO) 2.93 MIL/uL (4.50-6.20); RED CELL DISTRIBUTION WIDTH 17.3 % (11.0-15.5); WHITE BLOOD COUNT (AUTO) 7.3 K/uL (4.8-10.8)
[2017-11-28 04:00] VITALS: BP 118/69
[2017-11-28 04:07] LABS: ALBUMIN 3.3 g/dL (3.5-5.0); BILIRUBIN,TOTAL 1.2 mg/dL (0.2-1.0); CREATININE 1.3 mg/dL (0.5-1.5); PHOSPHORUS 4.3 mg/dL (2.5-4.9); POTASSIUM 4.3 mmol/L (3.5-5.1); TOTAL PROTEIN, SERUM 7.6 g/dL (6.0-8.3)
[2017-11-28 08:00] VITALS: BP 118/72
[2017-11-28] MEDS: FAMOTIDINE/PF 20 MG/2 ML VIAL IV SCH ×2 (10:38→21:28)
[2017-11-28] MEDS: FISH OIL 1000 MG/CAP PO SCH (10:39)
[2017-11-28] MEDS: ASPIRIN 81 MG EC TAB PO SCH (10:39)
[2017-11-28] MEDS: MULTIVITAMIN TABLET PO SCH (10:39)
[2017-11-28] MEDS: SPIRONOLACTONE 25 MG TAB PO SCH (10:39)
[2017-11-28] MEDS: TAMSULOSIN HCL 0.4 MG CAP.ER.24H PO SCH (10:39)
[2017-11-28] MEDS: DOXYCYCLINE HYCLATE 100 MG TABLET PO SCH ×2 (10:39→21:29)
[2017-11-28] MEDS: FOLIC ACID 1 MG TABLET PO SCH (10:39)
[2017-11-28] MEDS: CARVEDILOL 3.125 MG TABLET PO SCH ×2 (10:39→21:29)
[2017-11-28] MEDS: VITAMIN E 400 UNIT CAPSULE PO SCH (10:40)
[2017-11-28] MEDS: CYANOCOBALAMIN (VITAMIN B-12) 1,000 MCG TABLET PO SCH (10:40)
[2017-11-28] MEDS: FUROSEMIDE 10 MG/ML 2ML VIAL IV SCH (10:40)
[2017-11-28] MEDS: DOCUSATE SODIUM 100 MG CAP PO SCH ×2 (10:40→21:28)
[2017-11-28] MEDS: ENOXAPARIN SODIUM 40 MG/0.4 ML SYRINGE SQ SCH (10:41)
[2017-11-28] MEDS: FUROSEMIDE 20 MG TABLET PO SCH ×2 (11:00→21:32)
[2017-11-28 12:00] VITALS: BP 146/79
[2017-11-28 16:00] VITALS: BP 128/70
[2017-11-28] MEDS ORDERED: PRED20TA3 PO (16:25)
[2017-11-28] MEDS: IPRATROPIUM 0.5 MG/2.5 ML INH IH SCH (18:00)
[2017-11-28] MEDS ORDERED: DOXY100C2 PO (19:06)
[2017-11-28 20:00] VITALS: BP 130/71
[2017-11-28] MEDS: ATORVASTATIN CALCIUM 10 MG TABLET PO SCH (21:29)
[2017-11-29] MEDS: IPRATROPIUM 0.5 MG/2.5 ML INH IH SCH
[2017-11-29] MEDS: METHYLPREDNISOLONE SOD SUCC 40MG/ML 1ML IVP SCH ×2 (02:13→14:18)
[2017-11-29] MEDS: IPRATROPIUM/ALBUTEROL SULFATE 3 ML SOLUTION IH SCH ×4 (02:35→13:30)
[2017-11-29 04:00] VITALS: BP 132/70
[2017-11-29 08:00] VITALS: BP 124/76
[2017-11-29] MEDS: ENOXAPARIN SODIUM 40 MG/0.4 ML SYRINGE SQ SCH (09:56)
[2017-11-29] MEDS: ASPIRIN 81 MG EC TAB PO SCH (09:57)
[2017-11-29] MEDS: DOCUSATE SODIUM 100 MG CAP PO SCH (09:57)
[2017-11-29] MEDS: FOLIC ACID 1 MG TABLET PO SCH (09:57)
[2017-11-29] MEDS: CARVEDILOL 3.125 MG TABLET PO SCH (09:57)
[2017-11-29] MEDS: CYANOCOBALAMIN (VITAMIN B-12) 1,000 MCG TABLET PO SCH (09:57)
[2017-11-29] MEDS: MULTIVITAMIN TABLET PO SCH (09:57)
[2017-11-29] MEDS: TAMSULOSIN HCL 0.4 MG CAP.ER.24H PO SCH (09:57)
[2017-11-29] MEDS: SPIRONOLACTONE 25 MG TAB PO SCH (09:57)
[2017-11-29] MEDS: FAMOTIDINE/PF 20 MG/2 ML VIAL IV SCH (09:58)
[2017-11-29] MEDS: DOXYCYCLINE HYCLATE 100 MG TABLET PO SCH (09:58)
[2017-11-29] MEDS: FISH OIL 1000 MG/CAP PO SCH (09:58)
[2017-11-29] MEDS: VITAMIN E 400 UNIT CAPSULE PO SCH (09:58)
[2017-11-29] MEDS: FUROSEMIDE 20 MG TABLET PO SCH (10:46)
[2017-11-29 11:00] VITALS: BP 118/73
== END 2017-11-29 17:15 | disposition home or self-care (01) | DRG 189 ==
LOC: EDH 09:13 → EDHIP 10:26 → OBSVTOIN 10:26 → 3AH 15:27
PROVIDERS: ADMIT Family Medicine; ATTEND Family Medicine
PROC: 0BDG4ZX Extraction of Left Upper Lung Lobe, Percutaneous Endoscopic Approach, Diagnostic (ICD-10-PCS; principal; 2017-11-28)
PROC: 0BDC4ZX Extraction of Right Upper Lung Lobe, Percutaneous Endoscopic Approach, Diagnostic (ICD-10-PCS; 2017-11-28)
DX: J96.90 Respiratory failure, unspecified, unspecified whether with hypoxia or hypercapnia (principal); J44.1 Chronic obstructive pulmonary disease with (acute) exacerbation; R64 Cachexia; E46 Unspecified protein-calorie malnutrition; I50.22 Chronic systolic (congestive) heart failure; I11.0 Hypertensive heart disease with heart failure; D64.9 Anemia, unspecified; Z95.1 Presence of aortocoronary bypass graft; I25.10 Atherosclerotic heart disease of native coronary artery without angina pectoris; Z68.24 Body mass index [BMI] 24.0-24.9, adult; Z88.8 Allergy status to other drugs, medicaments and biological substances; I25.2 Old myocardial infarction; Z85.118 Personal history of other malignant neoplasm of bronchus and lung; Z87.891 Personal history of nicotine dependence; Z95.5 Presence of coronary angioplasty implant and graft
CPT/HCPCS: 36415; 71045; 71046; 80048; 80053; 82550; 82553; 83605; 83735; 83874; 83880; 84100; 84484; 85025; 85027; 85610; 85730; 86606; 86612; 86635; 86641; 86698; 87385; 93005; 94640; 94664; 94760; J1650; J1940; J2920; J2930; J3490